=== PATIENT | female | born 1985 | race Caucasian/White ===

== ENCOUNTER 2023-11-08 22:17 | Observation (INO) | payer BC ==
[~2023-11-08] VITALS: Ht 160 cm; Wt 128.7 kg
[2023-11-08] MEDS ORDERED: NS 1,000 ML IV SCH (22:40)
[2023-11-08] MEDS ORDERED: Ondansetron HCl 2 MG / ML 2ML Vial IV ONE (22:40)
[2023-11-08] MEDS ORDERED: Morphine Sulfate 4 MG/1 ML Injection IV ONE (22:40)
[2023-11-08 23:22] LABS: BASOPHILS ABSOLUTE AUTO 0.05 K/mm3 (0.00-0.23); BASOPHILS PERCENT AUTO 0 % (0-2); EOSINOPHILS ABSOLUTE AUTO 0.06 K/mm3 (0.00-0.68); EOSINOPHILS PERCENT AUTO 0 % (0-6); Hematocrit 32.9 % (33.0-51.0); Hemoglobin 10.4 g/dL (11.5-16.0); IMMATURE GRAN ABSOLUTE AUTO 0.07 K/mm3 (0.00-0.10); IMMATURE GRAN PERCENT AUTO 0 % (0-1); LYMPHOCYTES ABSOLUTE AUTO 1.46 K/mm3 (0.84-5.20); LYMPHOCYTES PERCENT AUTO 9 % (21-46); MONOCYTES ABSOLUTE AUTO 0.69 K/mm3 (0.16-1.47); MONOCYTES PERCENT AUTO 4 % (4-13); Mean Corpuscular HGB 23.6 pg (26.0-34.0); Mean Corpuscular HGB Conc 31.6 g/dL (31.5-36.5); Mean Corpuscular Volume 75 fL (80-100); Mean Platelet Volume 10.2 fL (9.1-12.4); NEUTROPHILS ABSOLUTE AUTO 14.14 K/mm3 (1.96-9.15); NEUTROPHILS PERCENT AUTO 86 % (41-73); Platelet Count 231 K/mm3 (150-400); RDW Coefficient Variation 23.7 % (11.7-14.2); RDW Standard Deviation 62.9 fL (35.1-46.3); White Blood Cell Count 16.47 K/mm3 (4.00-11.30)
[2023-11-08] MEDS ORDERED: HYDROmorphone HCl/Pf 1MG SYR IV ONE (23:25)
[2023-11-08 23:37] LABS: Albumin, Blood 3.6 g/dL (3.4-5.0); Albumin/Globulin Ratio 0.8 (0.8-1.8); Bilirubin, Total 0.4 mg/dL (0.1-1.0); Bun/Creatinine Ratio 15.6 (12.0-20.0); Calcium, Blood 9.3 mg/dL (8.5-10.1); Creatinine, Blood 0.83 mg/dL (0.40-1.00); Globulin, Blood 4.3 g/dL (2.2-4.0); Potassium, Blood 3.7 mmol/L (3.5-5.5); Total Protein, Blood 7.9 g/dL (6.4-8.2)
[2023-11-09] VITALS (22 sets, daily range): BP systolic 98–204; BP diastolic 51–115
[2023-11-09] MEDS ORDERED: Ondansetron HCl 2 MG / ML 2ML Vial IV PRN ×2 (01:00→02:30)
[2023-11-09] MEDS ORDERED: Lactated Ringer's 1,000 ML IV SCH ×2 (01:00→12:05)
[2023-11-09] MEDS ORDERED: FentaNYL Citrate 50 MCG/ML 2 ML Injection IV PRN ×2 (01:00→02:25)
[2023-11-09] MEDS ORDERED: HydroCHLOROthiazide 25 mg Tab PO ONE (01:10)
[2023-11-09 01:18] LABS: Source, Urine Clean Catch
[2023-11-09 01:22] LABS: Bilirubin, Urine Neg (Neg); Blood, Urine 1+ (Neg); Glucose Qualitative, Urine Neg (Neg); Ketones, Urine Neg (Neg); Leukocyte Esterase, Urine Neg (Neg); Nitrite, Urine Neg (Neg); Protein, Urine Neg (Neg); Specific Gravity, Urine 1.015 (1.003-1.022); Urobilinogen, Urine NORM (Normal)
[2023-11-09 01:35] LABS: Appearance, Urine Clear (Clear); Color, Urine Yellow (P-Yellow)
[2023-11-09 01:36] LABS: Bacteria Rare /hpf; Red Blood Cells, Urine 0-2 /hpf (0-2); Squamous Epithelial Cells Few /hpf (Few); White Blood Cells, Urine Not Seen /hpf (0-5)
[2023-11-09] MEDS ORDERED: NS 1,000 ML IV ONE (02:30)
[2023-11-09] MEDS ORDERED: FLU VACC TS2024-25(6MOS UP)/PF 45 MCG/0.5 ML SYRINGE IM ONE (02:30)
[2023-11-09] MEDS ORDERED: HydrALAZINE HCl 20 MG / ML 1ML Vial IV PRN (02:30)
[2023-11-09] MEDS ORDERED: LOSA50 PO (02:32)
[2023-11-09] MEDS ORDERED: HYDCHL25 PO (02:32)
[2023-11-09] MEDS ORDERED: Ampicillin Sod/Sulbactam Sod 3 GM in NS 100 ML IV SCH ×2 (02:36→08:00)
[2023-11-09 02:46] LABS: BASOPHILS ABSOLUTE AUTO 0.03 K/mm3 (0.00-0.23); BASOPHILS PERCENT AUTO 0 % (0-2); EOSINOPHILS ABSOLUTE AUTO 0.01 K/mm3 (0.00-0.68); EOSINOPHILS PERCENT AUTO 0 % (0-6); Hematocrit 31.7 % (33.0-51.0); Hemoglobin 9.9 g/dL (11.5-16.0); IMMATURE GRAN ABSOLUTE AUTO 0.05 K/mm3 (0.00-0.10); IMMATURE GRAN PERCENT AUTO 0 % (0-1); LYMPHOCYTES ABSOLUTE AUTO 1.04 K/mm3 (0.84-5.20); LYMPHOCYTES PERCENT AUTO 6 % (21-46); MONOCYTES ABSOLUTE AUTO 0.88 K/mm3 (0.16-1.47); MONOCYTES PERCENT AUTO 5 % (4-13); Mean Corpuscular HGB 23.7 pg (26.0-34.0); Mean Corpuscular HGB Conc 31.2 g/dL (31.5-36.5); Mean Corpuscular Volume 76 fL (80-100); Mean Platelet Volume 9.5 fL (9.1-12.4); NEUTROPHILS ABSOLUTE AUTO 15.64 K/mm3 (1.96-9.15); NEUTROPHILS PERCENT AUTO 89 % (41-73); Platelet Count 285 K/mm3 (150-400); RDW Standard Deviation 64.4 fL (35.1-46.3); Red Blood Cell Count 4.17 M/mm3 (3.80-5.20); White Blood Cell Count 17.65 K/mm3 (4.00-11.30)
[2023-11-09 03:07] LABS: Albumin, Blood 3.4 g/dL (3.4-5.0); Albumin/Globulin Ratio 0.8 (0.8-1.8); Bilirubin, Total 0.5 mg/dL (0.1-1.0); Bun/Creatinine Ratio 13.6 (12.0-20.0); Calcium, Blood 8.8 mg/dL (8.5-10.1); Creatinine, Blood 0.81 mg/dL (0.40-1.00); Globulin, Blood 4.3 g/dL (2.2-4.0); Potassium, Blood 4.1 mmol/L (3.5-5.5); Total Protein, Blood 7.7 g/dL (6.4-8.2)
--- NOTE | 2023-11-09 04:32 | NUR ---
ARRIVAL TO PCU: PT ARRIVED TO PCU-14 VIA GURNEY AT APPROX 0215. PT ABLE TO STAND & TRANSFER SELF TO BED. PT ALERT, ORIENTED X4 ON ARRIVAL. ABLE TO COMMUNICATE NEEDS W/ STAFF. BP REMAINS ELEVATED BUT IMPROVED; SBP 170'S ON ARRIVAL, 150'S AT THIS TIME. HR 100-110'S, SINUS TACH ON TELE. SPO2 >95% ON ROOM AIR, RESPIRATIONS EVEN & UNLABORED. AFEBRILE. PT ENDORSES 2/10 PAIN TO RIGHT LOWER ABDOMEN, REPORTS PAIN IS WELL CONTROLLED AT THIS TIME. NPO FOR SURGICAL CONSULT THIS AM. NS INFUSING AT 75 ML/HR PER EMAR. PT ORIENTED TO ROOM/UNIT/CALL LIGHT. FIRE SAFETY/IGNITION RISK ASSESSED; PT IS A NEVER SMOKER & DOES NOT HAVE ANY IGNITION SOURCES PRESENT ON ADMISSION. NO OTHER NEEDS AT THIS TIME, CALL LIGHT IN REACH.
[2023-11-09] MEDS ORDERED: Losartan Potassium 50 MG Tab PO SCH (09:00)
[2023-11-09] MEDS ORDERED: HydroCHLOROthiazide 25 mg Tab PO SCH (09:00)
[2023-11-09] MEDS ORDERED: propofoL 20 ML IV ONE (11:58)
[2023-11-09] MEDS ORDERED: FentaNYL Citrate 50 MCG/ML 2 ML Injection ONE (11:59)
--- NOTE | 2023-11-09 12:38 | NUR ---
PT HERE FROM PCU 19 VIA GURN FOR LAP APPY PER DR. JOHN. PT FEBRILE W/ VERY WARM SKIN, Patient confirms NPO status and agrees with scheduled surgery. History, Chart, Medications and Allergies reviewed before start of procedure.Pre-Op teaching done. Pt verbalizes understanding.
[2023-11-09] MEDS ORDERED: Bupivacaine 0.5% HCl 5 MG/ML 30MLVIAL ONE (12:39)
--- NOTE | 2023-11-09 12:40 | NUR ---
PT UNABLE TO VOID X 2 IN ROOM. SERUM HCG DRAWN FROM 18 IV IN RAC AND SENT FOR STAT RESULTS.
--- NOTE | 2023-11-09 12:59 | NUR ---
PT LEFT FOR SURGERY AT 1220. BELONGINGS WERE COLLECTED BY FAMILY. REPORT WAS CALLED TO EILEEN Crockett RN. PT A&OX4. WAS ABLE TO AMBULATE TO THE [facility]. PT HAS DENIED ANY CP, SOB OR ANY OTHER NEW COMPLAINTS, ONLY ABD PAIN. PT WILL BE TRANSFERED TO ROOM 208 AFTER SURGERY FOR EILEEN Crockett RN TO ASSUME CARE OF PT.
[2023-11-09] MEDS ORDERED: Midazolam HCl 1MG / ML 2ML Vial IV ONE (13:00)
[2023-11-09] MEDS ORDERED: Midazolam HCl 1MG / ML 2ML Vial ONE (13:01)
[2023-11-09] MEDS ORDERED: Ketorolac Tromethamine 30mg Vial ONE (14:08)
[2023-11-09] MEDS ORDERED: Dexamethasone Sod Phos 10 MG/ML 1ML VIAL ONE (14:08)
[2023-11-09] MEDS ORDERED: Sugammadex Sodium 200 MG/2ML SDV (100 MG/ML) ONE (14:08)
[2023-11-09] MEDS ORDERED: Ondansetron HCl 2 MG / ML 2ML Vial ONE (14:08)
--- NOTE | 2023-11-09 15:20 | NUR ---
ARRIVAL TO UNIT PT ARRIVED TO UNIT VIA GOURNEY. PT SLID TO BED. A&O x4. VSS, PT ON 2L O2 VIA NC TO MAINTAIN SAT >90%, TELE CONFIRMED. IV FLUIDS INFUSING PER EMAR. LAP SITES x3 c GAUZE/TAPE C/D/I. PT REPORTS PAIN TOLERABLE. FAMILY AT BEDSIDE. ORIENTED TO ROOM. CALL LIGHT IN REACH, NO NEEDS STATED.
[2023-11-09] MEDS ORDERED: HYDROcodone 5-APAP 325 TAB PO PRN (16:10)
--- NOTE | 2023-11-09 17:46 | NUR ---
SHIFT SUMMARY POD 0 LAP APPY. NO ACUTE CHANGES TODAY. VSS, TELE - NSR @ 83. PT TOLERATING CLEAR DIET. LAP SITES x3 C/D/I. IV FLUIDS/ABX INFUSING PER EMAR. VOIDING. AMB SBA R/T LINE/CORD MANAGEMENT. PT REPORTS PAIN TOLERABLE, MEDICATED PER EMAR. CALL LIGHT IN REACH, BED IN LOWEST POSITION, WILL REPORT TO MARISSA STOLL.
[2023-11-09] MEDS ORDERED: NS 250 ML IV PRN (23:55)
[2023-11-10] VITALS: BP 155/90
[2023-11-10 04:07] VITALS: BP 146/94
--- NOTE | 2023-11-10 04:17 | NUR ---
SHIFT SUMMARY PT IS POD1 FOR A LAP APPY, INCISION SITES C/D/I, PT IND TO BATHROOM AND VOIDING/PASSING FLATUS. VSS. PAIN MANAGED W/ PO PAIN MEDS. IV ABX GIVEN ORDERED. PT USING CALL LIGHT, JUNE D/C TODAY.
[2023-11-10 05:17] LABS: Hematocrit 30.2 % (33.0-51.0); Hemoglobin 9.4 g/dL (11.5-16.0); Mean Corpuscular HGB 24.2 pg (26.0-34.0); Mean Corpuscular HGB Conc 31.1 g/dL (31.5-36.5); Mean Corpuscular Volume 78 fL (80-100); Platelet Count 252 K/mm3 (150-400); RDW Coefficient Variation 24.5 % (11.7-14.2); Red Blood Cell Count 3.88 M/mm3 (3.80-5.20); White Blood Cell Count 17.08 K/mm3 (4.00-11.30)
[2023-11-10 05:40] LABS: BAND PERCENT MAN 12 % (0-8); BASOPHILS PERCENT MAN 0 % (0-2); EOSINOPHILS PERCENT MAN 0 % (0-6); LYMPHOCYTES ABSOLUTE MAN 0.68 K/mm3 (0.84-5.20); LYMPHOCYTES PERCENT MAN 4 % (21-46); MONOCYTES ABSOLUTE MAN 0.17 K/mm3 (0.16-1.47); MONOCYTES PERCENT MAN 1 % (4-13); NEUTROPHILS ABSOLUTE MAN 16.22 K/mm3 (1.96-9.15); SEG NEUTROPHILS PERCENT MAN 83 % (41-73); TOTAL CELLS COUNTED 100
[2023-11-10 06:53] LABS: Bun/Creatinine Ratio 15.2 (12.0-20.0); Calcium, Blood 9.2 mg/dL (8.5-10.1); Creatinine, Blood 0.79 mg/dL (0.40-1.00); Potassium, Blood 3.6 mmol/L (3.5-5.5)
[2023-11-10 07:09] VITALS: BP 139/86
--- NOTE | 2023-11-10 07:32 | NUR ---
DR. JOHN AT PT BEDSIDE, OK TO ADVANCE DIET TO REGULAR.
--- NOTE | 2023-11-10 09:26 | NUR ---
PT HAS HAD NO BM FOR [address] STAFFORD NOTIFIED, MD WILL PLACE ORDERS FOR BOWEL CARE.
[2023-11-10] MEDS ORDERED: Sennosides 8.6 MG Tab PO PRN (09:30)
[2023-11-10] MEDS ORDERED: MIRALAX17 GM PO (11:28)
[2023-11-10] MEDS ORDERED: Norco 5-325 Ta1 EACH PO (11:28)
[2023-11-10] MEDS ORDERED: AMOCLA875 PO (11:29)
--- NOTE | 2023-11-10 11:59 | NUR ---
PT DISCHARGED HOME. DISCHARGE INSTRUCTIONS DISCUSSED WITH PT. PT VERBALIZE UNDERSTANDING TO FOLLOW UP WITH PCP AND SURGEN. ALERT AND ORIENTED X4 ABLE TO MAKE NEEDS KNOWN. TAKEN OUT BY WHEEL CHAIR, SPOUSE AT BEDSIDE
== END 2023-11-10 12:25 | disposition home or self-care (01) ==
LOC: ER 22:17 → SURS 22:18 → PCU 22:18 → SURS 11-09 13:41
PROVIDERS: Emergency Medicine; Student in an Organized Health Care Education/Training Program; Surgery; ADMIT Internal Medicine
PROC: 0DTJ4ZZ Resection of Appendix, Percutaneous Endoscopic Approach (ICD-10-PCS; principal; 2023-11-09 12:30)
DX: K35.80 Unspecified acute appendicitis (principal); K57.32 Diverticulitis of large intestine without perforation or abscess without bleeding; D27.0 Benign neoplasm of right ovary; K66.0 Peritoneal adhesions (postprocedural) (postinfection); I16.0 Hypertensive urgency; I10 Essential (primary) hypertension; K76.0 Fatty (change of) liver, not elsewhere classified; D64.9 Anemia, unspecified; Z79.899 Other long term (current) drug therapy; Z88.8 Allergy status to other drugs, medicaments and biological substances
CPT/HCPCS: 36415; 74177; 80048; 80053; 81001; 83690; 83880; 84703; 85025; 88304; 96361; 96365; 96374-59; 96375; 96376; 99285-25; A9270; G0378; J0295; J1100; J1170; J1885; J2250; J2270; J2405; J2704; J3010; J7030; J7120; Q9967